=== PATIENT | female | born 1985 | race Caucasian/White ===

== ENCOUNTER → 2016-06-07 | Day surgery (SDC) | payer MEDICAID ==
[2013-09-01 08:04] VITALS: BMI 24.6
[~2016-06-07] MED LIST: ACETAMINOPHEN 325 MG/10 ML SUSP ONE; FENTANYL 100 MCG/2 ML VIAL IV PRN; HYDROmorphone 1 MG INJECTION IV PRN; LABETALOL 20 MG/4 ML SYRINGE IV PRN; Lidocaine 2%-Epinephrine 1:100,000 20ml vial ONE; MEPERIDINE 25 MG/ML TUBEX IV PRN; MIDAZOLAM 5 MG/ML VIAL ONE; ONDANSETRON HCL 4 MG ODT TAB PO PRN; ONDANSETRON HCL 4 MG/2 ML VIAL IV PRN; hydrALAZINE 20 MG/ML VIAL IV PRN
--- NOTE | 2016-06-07 08:02 | HIM.ANES ---
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 Psychological: Yes Hx Anxiety (with large groups of people), Yes Hx Mental/ Emotional Disorders HX Other Psyco/Soc Problems: mental capacity of a 4 year old. Blood/Autoimmune: No: Hx AIDS, Hx Hepatitis (type) Smoking Status: Never smoker Surgical History: Yes: T&A Other Surgical History: EAR TUBES - Focused Physical Exam NPO since: 06/06/16 Mallampati: Class III Thyromental Distance: Less than 3 Neck: Limited Range of Motion (neck stiffness this am) Dental: Loose/Decaying Teeth Cardiovascular/Chest: Normal Respiratory: Lungs clear Any problems with anesthesia, including nausea and vomiting?: No Any relatives with a history of Malignant Hyperthermia?: No Does patient have a history of Malignant Hyperthermia?: No Beta Rebecca given (if appropriate): N/A Does the patient have a history of Motion Sickness-: Yes Other: Allergies Allergy/AdvReac Type Severity Reaction Status Date / Time Milk Containing Products Allergy Diarrhea Verified 06/07/16 07:15 Penicillins Allergy Rash-Genera Verified 05/01/16 12:20 lized Sulfa (Sulfonamide Allergy Hives* Verified 06/07/16 07:15 Antibiotics) Home Medications Medication Instructions Recorded Last Taken Type Carbamazepine [Tegretol] 150 mg PO BID 08/31/13 06/07/16 05:30 History Dextroamphetamine/Amphetamine 20 mg PO DAILY 08/31/13 06/07/16 05:30 History [Adderall Xr 20 mg Capsule] Docusate Sodium [Colace] 100 mg PO DAILY 08/31/13 06/06/16 07:00 History Fexofenadine HCl [Cony] 180 mg PO DAILY 08/31/13 06/07/16 05:30 History Fluticasone Propionate [Flonase] 16 gm NS BID 08/31/13 01/18/14 20:00 History Haloperidol [Haldol] 0.25 mg PO 2200 08/31/13 06/06/16 20:00 History Multivitamin with Minerals [One 1 each PO DAILY 08/31/13 06/07/16 05:30 History Daily] Polyethylene Glycol 3350 [Miralax] 17 gm PO DAILY 08/31/13 06/06/16 07:00 History Silodosin [Rapaflo] 8 mg PO DAILY 08/31/13 06/07/16 05:30 History Sodium Fluoride [Prevident] 56 gm DT BID 08/31/13 06/06/16 20:00 History Cholecalciferol (Vitamin D3) 2,000 unit PO DAILY 05/01/16 06/07/16 05:30 History [Vitamin D3] Montelukast Sodium [Singulair] 10 mg PO DAILY 05/01/16 06/06/16 20:00 History Mouthwash [Magic Mouthwash] 0 ml PO Q6-8H PRN 05/01/16 06/06/16 20:00 History Petrolatum [Eucerin Cream] 113 gm TOP BID 05/01/16 06/06/16 08:00 History Height and Weight Patient's height 4 ft 11 in Patient's weight 62.142 kg BMI 24.6 Vital Signs Temperature 98.9 F 06/07/16 07:03 Pulse Rate 90 06/07/16 07:03 Respiratory Rate 18 06/07/16 07:03 Blood Pressure 105/72 06/07/16 07:03 Pulse Oxygen Saturation 99 06/07/16 07:03 METS - Level of Activity: Eating, Dressing, walking around house, dishwashing - Anesthetic Plan Anesthesia Type: General ASA Class: 3 -: I have examined this patient and reviewed the medical record. The patient has been assessed prior to anesthesia. Risks and benefits of anesthesia and anesthetic technique options have been discussed and all questions answered. The patient accepts the risk and desires me to proceed with the planned anesthetic.
[2016-06-07 12:09] VITALS: PULSE 95; TEMP 98.6
[2016-06-07 17:20] VITALS: BP 125/58
--- NOTE | 2016-06-07 17:20 | SC.ANESPOS ---
Post-Anesthesia Note LOC: Fully Awake Post-Anesthesia Assessment: Awake, Returned to Baseline, Hemodynamically Stable , Pain Control Adequate Phase I & II Recovery Complete: Yes Apparent Anesthesia Complication: No : N PACU Discharge Time: 11:40 - Vital Signs Blood Pressure: 125/58 Pulse: 95 Resp Rate: 18 O2 Sat: 96 Temp: 98.6 F - Comments Anesthesia Discharge Time Report Time 11:40
--- NOTE | 2016-06-07 18:26 | HIMOP ---
DATE OF PROCEDURE: PREOPERATIVE DIAGNOSES: Dental caries/behavior management issues due to intellectual/developmental disabilities. Dental care provided in the OR for medically necessary treatment. OPERATION: Full mouth oral rehabilitation including exam, x-rays, cleaning. SURGEON: Sherwin Dimas DDS. DRY CURER: Carol Cates and hospital staff. ANESTHESIA: General. PROCEDURE: The patient was brought into the operating room and placed in supine position. General anesthesia was administered via nasal intubation. The patient was prepped and draped in the usual manner for an intraoral general dentistry procedure. The oropharynx was suctioned and a moistened posterior throat pack was placed. A full intraoral exam including all hard and soft tissues was performed. This was a recall exam. Soft tissue exam reveals floor of the mouth , buccal mucosa, soft palate, hard palate, tongue, gingival, and frenum attachments all within normal limits with regard to size, color, and consistency. Hard tissue exam reveals #1 missing, # 2 through 15 present, #16, #17 missing, #18 through #30 present, #31 and #32 missing. Full mouth series of digital x-rays were taken. Full mouth debridement was completed. Amalgams were completed on # 3 DO, #14 MOL, #15 O, #18 B, #29 O, #30 O. A composite was completed on #24 IFD. The mouth was suctioned dry and a posterior throat pack was carefully removed with constant suction. The patient was awakened in the OR, and transferred to the recovery room in good condition. The results of the operative care were reviewed with her mother after the procedure. [id number]
== END ==
LOC: SDC 06:28
PROVIDERS: ATTEND Dentist General Practice
PROC: 0CRWXJ1 Replacement of Upper Tooth, Multiple, with Synthetic Substitute, External Approach (ICD-10-PCS; 2016-06-07)
PROC: 0CRXXJ1 Replacement of Lower Tooth, Multiple, with Synthetic Substitute, External Approach (ICD-10-PCS; principal; 2016-06-07 08:00)
DX: K02.9 Dental caries, unspecified (principal); E11.9 Type 2 diabetes mellitus without complications; F71 Moderate intellectual disabilities; E55.9 Vitamin D deficiency, unspecified; F41.9 Anxiety disorder, unspecified; J30.9 Allergic rhinitis, unspecified; F90.9 Attention-deficit hyperactivity disorder, unspecified type; Z79.899 Other long term (current) drug therapy
CPT/HCPCS: 41899; J2250; J3490